=== PATIENT | female | born 1990 | race Hispanic/Latino ===

== ENCOUNTER 2019-08-02 13:26 | Emergency (ER) | payer OTHER ==
[2019-08-02 14:11] LABS: BASOPHILS % (AUTO) 0.4 % (0.0-5.0); EOSINOPHILS % (AUTO) 3.8 % (0.0-8.0); LYMPHOCYTES % (AUTO) 28.6 % (21.0-51.0); MEAN CORPUSCULAR HEMOGLOBIN 28.8 pg (27.0-33.0); MEAN CORPUSCULAR HGB CONC 32.5 g/dL (32.0-36.0); MEAN CORPUSCULAR VOLUME 88.7 fL (79-99); PLATELET COUNT (AUTO) 313 K/uL (130-400); RED BLOOD CELL COUNT(AUTO) 4.06 MIL/uL (4.00-5.50); RED CELL DISTRIBUTION WIDTH 12.6 % (11.0-15.5); WHITE BLOOD COUNT (AUTO) 8.4 K/uL (4.8-10.8)
[2019-08-02 14:25] LABS: CREATININE 0.8 mg/dL (0.5-1.5); POTASSIUM 3.8 mmol/L (3.5-5.1)
[2019-08-02 14:30] LABS: ALBUMIN 3.2 g/dL (3.5-5.0); BILIRUBIN,TOTAL 0.1 mg/dL (0.2-1.0); TOTAL PROTEIN, SERUM 7.7 g/dL (6.0-8.3)
[2019-08-02 14:32] LABS: APPEARANCE,URINE CLOUDY (CLEAR); BILIRUBIN,URINE NEGATIVE (NEGATIVE); COLOR,URINE YELLOW (YELLOW); GLUCOSE, URINE (UA) NEGATIVE (NEGATIVE); KETONES,URINE NEGATIVE (NEGATIVE); LEUKOCYTE ESTERASE ,URINE NEGATIVE (NEGATIVE); NITRATE,URINE NEGATIVE (NEGATIVE); OCCULT BLOOD,URINE LARGE (NEGATIVE); PROTEIN,URINE NEGATIVE (NEGATIVE)
[2019-08-02 14:37] LABS: HCG,QUAL RESULT NEGATIVE (NEGATIVE)
[2019-08-02 14:39] LABS: BACTERIA,URINE Rare /HPF (None Seen); RBC,URINE >100 /HPF (0-1); WBC,URINE 0-1 /HPF (0-1)
[2019-08-02 14:40] LABS: SQUAMOUS EPITHELIAL CELL,UR Rare /HPF (0-2)
[2019-08-02 14:41] LABS: AMPHET/METH SCREEN,URINE NEGATIVE (NEGATIVE); BARBITURATE SCREEN, URINE NEGATIVE (NEGATIVE); BENZODIAZEPINES SCREEN,URINE NEGATIVE (NEGATIVE); CANNABINOID SCREEN,URINE NEGATIVE (NEGATIVE); COCAINE SCREEN,URINE NEGATIVE (NEGATIVE); OPIATE SCREEN,URINE NEGATIVE (NEGATIVE); PHENCYCLIDINE SCREEN,URINE NEGATIVE (NEGATIVE)
== END 2019-08-02 16:14 | disposition home or self-care (01) ==
LOC: EDH 13:26
DX: R00.2 Palpitations (principal); D64.9 Anemia, unspecified; Z88.0 Allergy status to penicillin
CPT/HCPCS: 36415; 80053; 80305; 81001; 81025; 82550; 84484; 85025; 93005

== ENCOUNTER 2022-06-05 17:37 | Emergency (ER) | payer OTHER ==
[~2022-06-05] VITALS: Ht 167.6 cm; Wt 127.0 kg
[2022-06-05] MEDS ORDERED: DIPH-1242 PO (19:29)
[2022-06-05] MEDS ORDERED: PRED20TA3 PO (19:29)
[2022-06-05] MEDS ORDERED: FAMOTIDINE 20MG VIAL IV ONE (19:30)
[2022-06-05] MEDS ORDERED: DiphenhydrAMINE HCL 50 MG/ML VIAL IV ONE (19:30)
[2022-06-05] MEDS ORDERED: SOLU-MEDROL 125MG VIAL IVP ONE (19:30)
[2022-06-05] MEDS ORDERED: 0.9% NACL 500ML IV.SOLN 500 ML IV ONE (19:30)
[2022-06-05 20:55] VITALS: BP 121/78
== END 2022-06-05 21:03 | disposition home or self-care (01) ==
LOC: EDH 17:37
DX: T78.49XA Other allergy, initial encounter (principal); Z98.890 Other specified postprocedural states; Z88.0 Allergy status to penicillin; X58.XXXA Exposure to other specified factors, initial encounter
CPT/HCPCS: 99284; 96374; 96375; 96361; J7040; J1200; J3490; J2930

== ENCOUNTER 2022-08-23 13:19 | Emergency (ER) | payer OTHER ==
[~2022-08-23] VITALS: Ht 167.6 cm; Wt 122.5 kg
[~2022-08-23 13:19] MED LIST: DIPH-1242 PO; PRED20TA3 PO
[2022-08-23 14:32] LABS: BASOPHILS % (AUTO) 0.3 % (0.0-5.0); EOSINOPHILS % (AUTO) 2.8 % (0.0-8.0); LYMPHOCYTES % (AUTO) 27.7 % (21.0-51.0); MEAN CORPUSCULAR HEMOGLOBIN 28.9 pg (27.0-33.0); MEAN CORPUSCULAR HGB CONC 32.6 g/dL (32.0-36.0); MEAN CORPUSCULAR VOLUME 88.6 fL (79-99); MONOCYTES % (AUTO) 5.2 % (3.0-13.0); NEUTROPHILS % (AUTO) 63.7 % (40.0-77.0); PLATELET COUNT (AUTO) 299 K/uL (130-400); RED BLOOD CELL COUNT(AUTO) 4.29 MIL/uL (4.00-5.50); RED CELL DISTRIBUTION WIDTH 12.3 % (11.0-15.5); WHITE BLOOD COUNT (AUTO) 9.7 K/uL (4.8-10.8)
[2022-08-23 14:41] LABS: CREATININE 0.6 mg/dL (0.5-1.5); POTASSIUM 3.8 mmol/L (3.5-5.1)
[2022-08-23 14:45] LABS: ALBUMIN 3.3 g/dL (3.5-5.0); TOTAL PROTEIN, SERUM 7.9 g/dL (6.0-8.3)
[2022-08-23 14:50] LABS: APPEARANCE,URINE TURBID (CLEAR); BILIRUBIN,URINE SMALL mg/dL (NEGATIVE); COLOR,URINE RED (YELLOW); GLUCOSE, URINE (UA) 250 mg/dL (NEGATIVE); KETONES,URINE 5 mg/dL (NEGATIVE); LEUKOCYTE ESTERASE ,URINE NEGATIVE Leu/uL (NEGATIVE); NITRATE,URINE NEGATIVE (NEGATIVE); OCCULT BLOOD,URINE LARGE (NEGATIVE); PROTEIN,URINE 100 mg/dL (NEGATIVE); UROBILINOGEN,URINE 0.2 mg/dL (0.2-1.0)
[2022-08-23 14:54] LABS: HCG,QUALITATIVE URINE NEGATIVE (NEGATIVE)
[2022-08-23 14:58] LABS: RBC,URINE TNTC /HPF (0-1)
[2022-08-23 14:59] LABS: BACTERIA,URINE Few /HPF (None Seen)
[2022-08-23 15:00] LABS: SQUAMOUS EPITHELIAL CELL,UR Rare /HPF (0-2)
[2022-08-23] MEDS ORDERED: METF500S9 PO (16:45)
[2022-08-23] MEDS ORDERED: METF-444 PO (16:48)
[2022-08-23 17:32] VITALS: BP 150/84
[2022-08-23] MEDS ORDERED: MEDR5POW MC (18:12)
[2022-08-23] MEDS ORDERED: ESTROGENS,CONJUGATED 25 MG/VIAL IM SCH (18:30)
== END 2022-08-23 19:19 | disposition home or self-care (01) ==
LOC: EDH 13:19
DX: N93.9 Abnormal uterine and vaginal bleeding, unspecified (principal); E11.65 Type 2 diabetes mellitus with hyperglycemia; N92.6 Irregular menstruation, unspecified; Z79.84 Long term (current) use of oral hypoglycemic drugs; Z79.899 Other long term (current) drug therapy; Z98.890 Other specified postprocedural states; Z88.0 Allergy status to penicillin
CPT/HCPCS: 99285; 76856; 80053; 85025; 86850; 86900; 86901; 81001; 81025; 36415; 96372; J1410